=== PATIENT | female | born 1945 | race Caucasian/White ===

== ENCOUNTER → 2021-02-27 | Day surgery (SDC) | payer MEDICARE, OTHER ==
[~2021-02-27] MED LIST: Acetaminophen/HYDROcodone 325-5 MG Tab PO PRN; Bupivacaine 0.25% 10 ML SDV ONE; EPINEPHrine 1 MG/ML SDV ONE; Lactated Ringers 1,000 ML IV SCH; Lactated Ringers 1,000 ML ONE; Lidocaine 1%/Sod Bicarbonate in NS 8.4% 1 ML Syringe IDERM PRN; Midazolam 1 MG/ML 2 ML SDV ONE; Ondansetron 4 MG/2 ML SDV ONE; Propofol 200 MG/20 ML SDV ONE; Ropivacaine 0.5% 5 MG/ML 30 ML SDV ONE; Sodium Chloride 0.9% 10 ML Syringe FLUSH PRN; ceFAZolin 1 GM Vial ONE; ePHEDrine 50 MG/ML SDV ONE; fentaNYL 100 MCG/2 ML SDV IVPUSH PRN; fentaNYL 100 MCG/2 ML SDV ONE
--- NOTE | 2021-02-27 08:50 | PCM.PREANE ---
Preanesthetic Assessment - Procedure Proposed Procedure: right knee medial patello femoral ligament reconstruction - Anesthesia/Transfusion/Family Hx Anesthesia History: Prior Anesthesia Without Reaction Family History of Anesthesia Reaction: No Transfusion History: No Prior Transfusion(s) - Review of Systems General: No Symptoms Pulmonary: No Symptoms Cardiovascular: Dyspnea on Exertion Gastrointestinal: No Symptoms Neurological: No Symptoms Other: Reports: Easy Bleeding, Easy Bruising - Physical Assessment NPO Status Date: 02/26/21 NPO Status Time: 00:00 Vital Signs: Last Vital Signs Temp 36.7 C 02/27/21 06:40 Pulse 54 L 02/27/21 06:40 Resp 16 02/27/21 06:40 BP 119/60 02/27/21 06:40 Pulse Ox 95 02/27/21 06:40 Height: 1.68 m Weight: 111.4 kg ASA Class: 3 Mental Status: Alert & Oriented x3 Dentition: Reports: Partial (top) Thyro-Mental Finger Breadths: 2 Mouth Opening Finger Breadths: 2 ROM/Head Extension: Full Lungs: Clear to Auscultation, Normal Respiratory Effort, Decreased Breath Sounds Cardiovascular: Regular Rate, Regular Rhythm - Allergies Allergies/Adverse Reactions: Allergies Allergy/AdvReac Type Severity Reaction Status Date / Time No Known Allergies Allergy Verified 02/27/21 07:47 - Anesthesia Plan Pre-Op Medication Ordered: None - Acknowledgements Anesthesia Type Planned: Spinal Pt an Appropriate Candidate for the Planned Anesthesia: Yes Alternatives and Risks of Anesthesia Discussed w Pt/Guardian: Yes Pt/Guardian Understands and Agrees with Anesthesia Plan: Yes PreAnesthesia Questionnaire HEENT History: Reports: Other (See Below) Other HEENT History: wears glasses Cardiovascular History: Reports: Heart Murmur, High Cholesterol, Hypertension, Other (See Below) Other Cardiovascular History: aortic sclerosis Respiratory History: Reports: Sleep Apnea Gastrointestinal History: Reports: GERD [employer] SPECIALIST History: Reports: Other (See Below) Other OB/BYN History: breast calcification Musculoskeletal History: Reports: None Neurological History: Reports: None Psychiatric History: Reports: None Endocrine/Metabolic History: Reports: None Hematologic History: Reports: None Immunologic History: Reports: None Oncologic (Cancer) History: Reports: None Dermatologic History: Reports: Other (See Below) Other Dermatologic History: lichen sclerosus - Past Surgical History HEENT Surgical History: Reports: Oral Surgery Cardiovascular Surgical History: Reports: None Respiratory Surgical History: Reports: None GI Surgical History: Reports: Bariatric Procedure, Colonoscopy Female Surgical History: Reports: Cystoscopy, Other (See Below) Other Female Surgeries/Procedures: bladder sling Endocrine Surgical History: Reports: None Neurological Surgical History: Reports: None Musculoskeletal Surgical History: Reports: Joint Replacement, Other (See Below) Other Musculoskeletal Surgeries/Procedures:: bilateral total knee replacements Oncologic Surgical History: Reports: None Dermatological Surgical History: Reports: None - SUBSTANCE USE Tobacco Use Status *Q: Never Tobacco User Tobacco Use Within Last Twelve Months: No Second Hand Smoke Exposure: No Days Per Week of Alcohol Use: 0 Number of Drinks Per Day: 0 Total Drinks Per Week: 0 Recreational Drug Use History: No - HOME MEDS Home Medications: Home Meds Aspirin [Aspirin EC] 325 mg PO BID #84 tab 02/26/21 [Rx] Clobetasol Propionate [Temovate Cream] 1 dose TOP ASDIRECTED PRN 02/26/21 [History] Hydrocodone/Acetaminophen [HYDROcodone-Acetaminophen 5-325 MG] 1 - 2 each PO Q4H PRN #40 tablet 02/26/21 [Rx] Solifenacin [Vesicare] 5 mg PO DAILY 02/26/21 [History] atorvaSTATin Calcium [Lipitor] 20 mg PO DAILY 02/26/21 [History] hydroCHLOROthiazide [Hydrochlorothiazide] 25 mg PO DAILY 02/26/21 [History] lisinopriL [Lisinopril] 40 mg PO DAILY 02/26/21 [History] - CURRENT (IN HOUSE) MEDS Current Meds: Current Medications Lactated Ringer's (Ringers, Lactated) 1,000 mls @ 125 mls/hr IV ASDIRECTED RASHAAD Last Admin: 02/27/21 07:05 Dose: 125 mls/hr Documented by: Lidocaine/Sodium Bicarbonate (Lidocaine 1%/Sod Bicarbonate In Ns 8.4% 1 Ml Syringe) 0.25 ml IDERM ONETIME PRN PRN Reason: Prior to IV Start Last Admin: 02/27/21 07:05 Dose: 0.25 ml Documented by: Sodium Chloride (Sodium Chloride 0.9% 10 Ml Syringe) 10 ml FLUSH ASDIRECTED PRN PRN Reason: Keep Vein Open Discontinued Medications Bupivacaine HCl (Bupivacaine 0.25% 10 Ml Sdv) Confirm Administered Dose 30 ml .ROUTE .STK-MED ONE Stop: 02/27/21 08:32
--- NOTE | 2021-02-27 10:52 | PCM.POSTAN ---
POST ANESTHESIA ASSESSMENT - MENTAL STATUS Mental Status: Alert, Oriented - VITAL SIGNS Vital Signs: Last Vital Signs Temp 36.7 C 02/27/21 06:40 Pulse 54 L 02/27/21 06:40 Resp 16 02/27/21 06:40 BP 119/60 02/27/21 06:40 Pulse Ox 95 02/27/21 06:40 - RESPIRATORY Respiratory Status: Respiratory Rate WNL, Airway Patent, O2 Saturation Stable - CARDIOVASCULAR CV Status: Pulse Rate WNL, Blood Pressure Stable - GASTROINTESTINAL GI Status: No Symptoms - PAIN Pain Score: 0 - POST OP HYDRATION Hydration Status: Adequate & Stable - OBSERVATIONS Free Text/Narrative:: no anesthesia complications noted
--- NOTE | 2021-02-27 10:55 | CR ---
Fluoroscopy: 2 fluoroscopic spot views were obtained utilizing C-arm device. Fluoroscopy time given is 2.7 seconds. Exact x-rayed area cannot be determined on this fluoroscopic study. Impression: 1. Procedural study as noted above. Diagnostic code #2
--- NOTE | 2021-02-27 11:24 | PCM.SN.2 ---
- Free Text/Narrative Note: Right selective femoral nerve block at the adductor canal for post-procedure pain control under US guidance requested by Dr. Shine. Time Out: 1107 Start: 1107 End: 111 Chart reviewed. Consent signed. Questions answered. Appropriate monitors applied. Time out performed. right mid-shaft femur identified with ultrasound, scanning medially of femur, the femoral artery in the adductor canal visualized, and the femoral nerve located laterally to the artery. The skin was prepped lateral to the ultrasound probe with chlorahexadine times two. The 21ga 4 insulated block needle was inserted under direct ultrasound guidance into the adductor canal. 25mL of 0.5% ropivacaine with 1:200,000 epinephrine was injected circumferentially around the nerve with intermittent negative aspiration noted. Patient tolerated the procedure well. Sterile technique noted along with sterile gloves, mask, and sterile probe cover. See picture on progress note and vital signs on nurses notes. Block completed in PACU. Seb Montana CRNA
--- NOTE | 2021-02-27 14:48 | PCM48HPAN ---
Post Anesthesia Note - EVALUATION WITHIN 48HRS OF ANESTHETIC Vital Signs in Normal Range: Yes Patient Participated in Evaluation: Yes Respiratory Function Stable: Yes Airway Patent: Yes Cardiovascular Function Stable: Yes Hydration Status Stable: Yes Pain Control Satisfactory: Yes Nausea and Vomiting Control Satisfactory: Yes Mental Status Recovered: Yes Vital Signs: Last Vital Signs Temp 36.8 C 02/27/21 11:20 Pulse 59 L 02/27/21 11:20 Resp 18 02/27/21 11:20 BP 121/64 02/27/21 11:20 Pulse Ox 97 02/27/21 11:20 - COMMENTS/OBSERVATIONS Free Text/Narrative:: NO ANESTHESIA COMPLICATIONS NOTED
--- NOTE | 2021-03-11 10:37 | PCM.OPNOTE ---
- General Post-Op/Procedure Note Date of Surgery/Procedure: 02/27/21 Operative Procedure(s): right knee open lateral release with medial imbrication Pre Op Diagnosis: right knee patellofemoral dislocation status post total knee Post-Op Diagnosis: Same Anesthesia Technique: Local, MAC, Spinal Primary Surgeon: Jacoby Shine Anesthesia Provider: Seb Montana Farm Reporter: Maria Luisa Hendrickson EBL in mLs: 5 Complications: None Condition: Good
--- NOTE | 2021-03-11 11:42 | OR ---
DATE OF OPERATION: 02/27/2021 SURGEON: Jacoby Shine MD OPERATION PERFORMED: Right knee open lateral release with medial imbrication. PREOPERATIVE DIAGNOSIS: Right knee patellofemoral dislocation, status post total knee arthroplasty. POSTOPERATIVE DIAGNOSIS: Right knee patellofemoral dislocation, status post total knee arthroplasty. ANESTHESIA: Local MAC with spinal. ANESTHESIA PROVIDER: Seb Montana CRNA ESTIMATED BLOOD LOSS: 5 mL. COMPLICATIONS: None. CONDITION: Stable. DESCRIPTION OF PROCEDURE: The patient was identified in the preoperative holding area. Proper site was marked and identified by the surgeon. The patient was taken back to the operating theater where after adequate anesthesia, right lower extremity had a nonsterile tourniquet applied and then sterilely prepped and draped in the usual sterile fashion. An OR time-out was performed. The patient received 2 g of IV Ancef. Right lower extremity was exsanguinated. Tourniquet was insufflated to 250 mmHg. The previous anterior incision was utilized. This was taken down to the patella. Partial small medial parapatellar arthrotomy was created. The patient was noted to have significant subluxation and dislocation of the patella laterally into the lateral gutter. The patient was noted to have significant redundant tissue medially of the MPFL and medial retinacular structures. I did contemplate doing an MPFL reconstruction, but before doing this, I did see if the patient had good mobilization. I did an open lateral release and at this time, I did have fairly good patellar mobilization where I could reduce it into the groove. At this time, I decided secondary to using cadaveric tissue for the MPFL reconstruction that I would try doing the open lateral release with medial imbrication. #5 FiberWire sutures were then used in a [id number] fashion to tighten the medial structures. At this time, C-arm fluoroscopy was utilized and the patella was tracking centrally in the groove. Then, we did a closure of a #2 barbed suture over the top of the FiberWire. Before this was done, 1 L of pulse lavage irrigation with Ancef was irrigated through the knee along with 400 mL of IrriSept irrigation. The closure of the arthrotomy was then done with a #2 barbed suture. Stratafix was used subcutaneously, and Prineo was used for closure of the skin. The patient was placed in a hinged knee brace in roughly 30 degrees and sent to the PACU in stable condition. MMALEKSANDRA /[id number]
== END | disposition home or self-care (01) ==
LOC: JD.SDS 06:44
PROVIDERS: ATTEND Orthopaedic Surgery
DX: S83.091D Other subluxation of right patella, subsequent encounter (principal); E78.00 Pure hypercholesterolemia, unspecified; I10 Essential (primary) hypertension; G47.30 Sleep apnea, unspecified; E66.9 Obesity, unspecified; Z68.38 Body mass index [BMI] 38.0-38.9, adult; Z79.82 Long term (current) use of aspirin; Z79.899 Other long term (current) drug therapy; Z96.651 Presence of right artificial knee joint; X58.XXXD Exposure to other specified factors, subsequent encounter; G89.18 Other acute postprocedural pain
CPT/HCPCS: 27425; 76000; J0171; J0690; J2250; J2405; J2704; J2795; J3010; J7120; 01400; 64450; 76942; 99100; J3490